=== PATIENT | male | born 1950 | race Hispanic/Latino ===

== ENCOUNTER 2018-01-25 06:10 | Day surgery (SDC) | payer MEDICARE, OTHER ==
[~2018-01-25 06:10] MED LIST: ANCEF/STERILE WATER 2 GM/20 ML IV NR
[2018-01-25] MEDS ORDERED: VERSED ONE (07:27)
[2018-01-25] MEDS ORDERED: SUBLIMAZE ONE (07:27)
[2018-01-25] MEDS ORDERED: XYLOCAINE CARDIAC IV ONE (07:29)
[2018-01-25] MEDS ORDERED: DIPRIVAN 10 MG/ML IV ONE ×2 (07:29)
[2018-01-25] MEDS ORDERED: LACTATED RINGERS 1,000 ML IV SCH (07:31)
[2018-01-25] MEDS ORDERED: PEPCID IV NR (07:32)
[2018-01-25] MEDS ORDERED: NACL 0.9% 1000 ML 1,000 ML IV SCH (08:00)
[2018-01-25] MEDS ORDERED: VERSED IV NR (08:00)
[2018-01-25] MEDS ORDERED: ROBINUL ONE (08:34)
[2018-01-25] MEDS ORDERED: ZOFRAN ONE (08:43)
--- NOTE | 2018-01-25 08:59 | Anesthesia Day of Surgery ---
Anesthesia Day of Surgery - Day of Surgery Patient Examined: Yes Patient H&P Reviewed: Yes Patient is NPO: Yes
[2018-01-25] MEDS ORDERED: ZOFRAN IV PRN (09:00)
[2018-01-25] MEDS ORDERED: DILAUDID IV PRN (09:00)
--- NOTE | 2018-01-25 09:00 | Anesthesia Consultation ---
Anesthesia Consult and Med Hx Date of service: 01/25/18 - Airway Anesthetic Teeth Evaluation: Edentulous ROM Head & Neck: Adequate Mental/Hyoid Distance: Adequate Mallampati Class: Class III Intubation Access Assessment: Possibly Difficult - Pulmonary Exam CTA: Yes - Cardiac Exam Cardiac Exam: RRR - Pre-Operative Health Status ASA Pre-Surgery Classification: ASA3 Proposed Anesthetic Plan: General (hx of tob abuse, Gerd controlled, DM, GA with LMA) - Pulmonary Hx Smoking: Yes (DIPS SMOKLESS TOBACCO) Hx Sleep Apnea: No (MANJINDER PRE SCREEN LOW RISK.) - Cardiovascular System Hx Hypertension: No - Endocrine Hx Liver Disease: Yes (FATTY LIVER) - Hematic Hx Anemia: Yes (NOT RECENT) - Other Systems Hx Cancer: No
--- NOTE | 2018-01-25 09:14 | Short Stay Summary ---
Short Stay Documentation Date of service: 01/25/18 - History H&P: obtained from office - Allergies and Medications Current Medications: Allergies No Known Allergies Allergy (Verified 01/23/18 16:33) Home Medications Medication Instructions Recorded Confirmed Last Taken Type Aspirin [Aspir-Low] 81 mg PO DAILY 01/23/18 01/25/18 01/21/18 History Citalopram [celeXA] 20 mg PO QDAY 01/23/18 01/25/18 01/24/18 History Diphenoxylate HCl/Atropine 1 each PO DAILY 01/23/18 01/25/18 01/24/18 History [Lomotil 2.5-0.025 mg Tablet] Ferrous Sulfate [Iron] 325 mg PO DAILY 01/23/18 01/25/18 01/24/18 History Folic Acid 0.4 mg PO QDAY 01/23/18 01/25/18 01/24/18 History Magnesium Oxide [Magnesium] 400 mg PO DAILY 01/23/18 01/25/18 01/24/18 History Morphine [Morphine TAB] 30 mg PO PRN PRN 01/23/18 01/25/18 01/18/18 History Multivit-Min/FA/Lycopen/Lutein 1 each PO DAILY 01/23/18 01/25/18 01/24/18 History [Centrum Silver Tablet] Omeprazole 20 mg PO DAILY 01/23/18 01/25/18 01/24/18 History Tamsulosin HCl [Flomax] 0.4 mg PO DAILY 01/23/18 01/25/18 01/24/18 History metFORMIN [Glucophage] 500 mg PO BID 01/23/18 01/25/18 01/24/18 History Active Medications Cefazolin Sodium (Ancef/Sterile Water 2 Gm/20 Ml) 2 gm IV PREOP NR Stop: 01/25/18 23:02 Famotidine (Pepcid) 20 mg IV PREOP NR Stop: 01/25/18 23:59 Last Admin: 01/25/18 07:52 Dose: 20 mg Hydromorphone HCl (Dilaudid) 0.5 mg IV Q10MIN PRN PRN Reason: Pain , Severe (7-10) Sodium Chloride (Nacl 0.9% 1000 Ml) 1,000 mls @ 75 mls/hr IV DIRECT JASMYN Last Admin: 01/25/18 07:50 Dose: 75 mls/hr Midazolam HCl (Versed) 2 mg IV PREOP NR Stop: 01/25/18 23:59 Last Admin: 01/25/18 07:55 Dose: 2 mg Ondansetron HCl (Zofran) 4 mg IV ONCE PRN PRN Reason: Nausea And Vomiting - Brief post op/procedure progress note Date of procedure: 02/01/18 Pre-op diagnosis: left renal stone 5mm Post-op diagnosis: same Procedure: eswl Anesthesia: GETA Surgeon: CHAY LIMA Estimated blood loss: none Condition: stable - Hospital course Hospital course: pain meds per pain mgmt team strainer - Disposition Condition at discharge: Stable Disposition: DC-01 TO HOME OR SELFCARE Short Stay Discharge Plan Follow up with: LIANA SAMS MD [Primary Care Provider] - 7 Days
--- NOTE | 2018-01-25 10:43 | Operative Report ---
PREOPERATIVE DIAGNOSIS: Left renal stone, 5 mm. POSTOPERATIVE DIAGNOSIS: Left renal stone, 5 mm. PROCEDURE: Extracorporal shock wave lithotripsy. SURGEON: Asaf Crane MD ANESTHESIA: General. ESTIMATED BLOOD LOSS: Minimal. FLUIDS: Crystalloid. COMPLICATIONS: No complications. INDICATIONS: This 67-year-old gentleman seen by Dr. Peterson for evaluation of a kidney stone noted on CT abdomen and pelvis as well as KUB. Discussed options. He agreed to proceed with surgical intervention. He also has a history of chronic pain. He is under the care of a chronic pain management team. DESCRIPTION OF PROCEDURE: The patient was taken to the operative suite, placed in supine position after adequate general anesthesia. This 5 mm stone was localized in 2 planes using fluoroscopy. Extracorporal shock wave lithotripsy was administered with a maximum kV of seven 2500 shocks. Renal pause after 200 shocks was performed. Adequate fragmentation could be appreciated. He tolerated the procedure well and was extubated and taken to recovery room. Go home with a strainer. Follow up in the office. JOB# [id number] NAHUN/DEEP
--- NOTE | 2018-01-25 11:27 | Post Anesthesia Evaluation ---
- Post Anesthesia Evaluation Patient Participated: Yes Airway Patent: Yes Stable Respiratory Function: Yes Nausea/Vomiting: No Temp > 96.8F: Yes Pain Manageable: Yes Adequeate Hydration: Yes Anesthesia Complications: No
[2018-01-25 15:31] VITALS: BP 110/68
== END 2018-01-25 12:45 | disposition home or self-care (01) ==
LOC: OR 06:10
PROVIDERS: ATTEND Urology
DX: N20.0 Calculus of kidney (principal); G89.29 Other chronic pain; K52.9 Noninfective gastroenteritis and colitis, unspecified; K21.9 Gastro-esophageal reflux disease without esophagitis; M19.90 Unspecified osteoarthritis, unspecified site; D64.9 Anemia, unspecified; F32.9 Major depressive disorder, single episode, unspecified; Z79.899 Other long term (current) drug therapy; Z79.84 Long term (current) use of oral hypoglycemic drugs; Z79.82 Long term (current) use of aspirin; Z90.49 Acquired absence of other specified parts of digestive tract; Z87.891 Personal history of nicotine dependence; Z71.3 Dietary counseling and surveillance
CPT/HCPCS: 50590; 82962; J0690; J2001; J2250; J2405; J2704; J3010; J7030